=== PATIENT | male | born 1980 | race Caucasian/White ===

== ENCOUNTER → 2024-07-03 06:37 | Outpatient (REF) | payer OTHER, SELFPAY | LOC: RAD 06:37 | PROVIDERS: ATTENDING PHYSICIAN Nurse Practitioner | DX: E05.90 Thyrotoxicosis, unspecified without thyrotoxic crisis or storm (principal) | CPT/HCPCS: 76536 ==

== ENCOUNTER 2025-02-25 10:52 | Inpatient (IN) | payer OTHER, SELFPAY ==
[2025-02-25] VITALS (22 sets, daily range): BP systolic 99–137; BP diastolic 59–81; BMI 25.8
[2025-02-25] MEDS: ANECTINE 150 MG IV (09:07)
[2025-02-25] MEDS: AMIDATE 20 MG IV (09:07)
[2025-02-25] MEDS: SUBLIMAZE 100 MCG IV (09:12)
--- NOTE | 2025-02-25 09:13 | ED.GENMED ---
History of Present Illness
General
Chief Complaint: Overdose Intentional
Source: ambulance crew
Exam Limitations: altered mental status
Time Seen by Provider: 02/25/25 09:03
Nursing documentation reviewed up to this point in time: agreed with
History of Present Illness
History of Present Illness:
45-year-old male presumed overdose did not show up to work found in his bed somnolent please give 8 mg of Narcan with minimal relief empty bottle of Lexapro and clonidine, and an unknown third bottle
No trauma per EMS, minimally responsive with IV access, here pupils are 2-3 OU, somnolent not protecting his airway
10:15 AM discussed with father at bedside he found him face down and passed out this morning called 911 CPR started does not sound like he was pulseless, unsure if he was vomiting, has a history of mental illness followed at [facility]
alcohol occasionally
Past History
Past History
ED Past Medical History: None and Psychiatric (Anxiety, depression)
Social History
Tobacco: Smoker
Alcohol: Daily
Drug: Former user
Family History
Family History: Negative Diabetes, Hypertension or CAD
Phy Exam
Physical Exam
Physical Exam:
Physical Exam
General: Somnolent 45 male occasionally swinging his arm sitting up
Neck: No tongue bite pupils 2-3 oh
Heart: s1/s2 regular rate and rhythm, no murmur. equal radial pulses.
Lungs: no acute respiratory distress. clear bilaterally
Abdomen: Nontender
Neuro: Nonverbal somnolent
Skin: no rash
Psychiatric: Unable to assess
Extremities: No cyanosis
Course
Orders/Labs/Results
Orders:
Orders
02/25/25
Electrocardiogram (*1) Stat
Other Reason for Exam: OVERDOSE
02/25/25 09:01
Etomidate [Amidate 20 mg] 20 mg .ROUTE .STK-MED ONE
Succinylcholine Chloride [Anectine] 200 mg .ROUTE .STK-MED ONE
02/25/25 09:03
Propofol 1,000,000 Mcg/100 ml [Diprivan] 1,000,000 mcg in 100 ml .ROUTE .STK-MED
02/25/25 09:09
Fentanyl Citrate/Pf [Sublimaze] 100 mcg .ROUTE .STK-MED ONE
02/25/25 09:11
CT Head W/o Iv Contrast Urgent
Comment:
Reason For Exam: coma
Bedside Glucose- Treatment ONCE
Cardiac Monitoring- Treatment ONCE
IV Insert/Care/Rem.- Treatment PRN
Ventilator Initial Settings [RESP] Urgent
02/25/25 09:12
Electrocardiogram (*1) Stat
Reason for Study: Other
Other Reason for Exam: overdose
EKG- Treatment ONCE
Etomidate [Amidate 20 mg] 20 mg IV NOW STA
Fentanyl Citrate/Pf [Sublimaze] 100 mcg IV NOW STA
Succinylcholine Chloride [Anectine] 150 mg IV NOW STA
CR Chest Portable - 1 View Urgent
Comment:
Reason For Exam: vent
Reason Study Needs to be Portable: Patient Unstable
02/25/25 09:15
Propofol 1,000,000 Mcg/100 ml [Diprivan] 1,000,000 mcg in 100 ml IV PER PROTOCOL
Indication:: Deep Sedation
Begin Infusion:: Now
Goal:: RASS -3 to -5 or BIS < 60 or ventilator synchrony
Maximum dose in mcg/kg/min:: 50
Initial Dose in mcg/kg/min:: 20
Titration Instructions:: Titrate by 5-10 mcg/kg/min every 5 minutes until RASS -3 to -5 or
Titration Instructions:: BIS < 60 or ventilator synchrony is met.
Titration Instructions:: Administer analgesia bolus dose(s) & titrate analgesia prior to
Titration Instructions:: adjusting sedation.
Taper Instructions:: If RASS is at or below goal for 4 consecutive hours decrease infusion by
Taper Instructions:: 5-10 mcg/kg/min every 2 hours. Do not wean infusion to off if patient is
Taper Instructions:: receiving a continuous NMBA or has received bolus NMBA with the past 3 hrs
Over-sedation Instructions:: If BIS < 40 and synchronous with ventilator decrease infusion by
Over-sedation Instructions:: 5-10 mcg/kg/min every 2 hour until BIS = 40-60.
Notify provider:: immediately if patient exhibits signs/symptoms of propofol-related
Notify provider:: infusion syndrome.
Additional Instructions:: Patient MUST be mechanically ventilated and MUST receive analgesia.
02/25/25 09:16
Urinalysis Reflex To Culture Urgent
Date Specimen was Collected: 02/25/25
Time Specimen was Collected: 09:15
Urine Drug Abuse Screen Urgent
Date Specimen was Collected: 02/25/25
Time Specimen was Collected: 09:15
Urine Microscopic Reflex Cult Urgent
02/25/25 09:17
ABG [Arterial Blood Gas] Urgent
%Oxygen/Room Air: 100
Acetaminophen Urgent
Alcohol Urgent
Complete Blood Count/With Diff Urgent
Comprehensive Metabolic Panel Urgent
Magnesium Urgent
Comment: ADD ON
PTT Urgent
Prothrombin Time Urgent
Salicylate Urgent
Triglycerides Routine
Comment: baseline levels with propofol infusion
02/25/25 09:32
Straight cath- Treatment ONCE
0.9% Sodium Chloride 1000 ml [Nss] 1,000 ml IV BOLUS
02/25/25 10:00
FentaNYL 1,000 MCG/100 ML [Sublimaze] 1,000 mcg in 100 ml IV PER PROTOCOL
Fentanyl Citrate/Pf [Sublimaze] 50 mcg IV [id number] PRN
Propofol 1,000,000 Mcg/100 ml [Diprivan] 1,000,000 mcg in 100 ml IV PER PROTOCOL
02/25/25 10:13
Add On- LAB Routine
Tests Added?: magnesium
02/25/25 10:28
Crisis Consult Routine
Reason for Consult: od family 302
02/25/25 10:32
Admit/Transfer Patient As Directed
Co-Sign Provider:
Level of Care: Inpatient admission
Assign to:: ICU
Physician / Group: Kemar
Diagnosis: Drug overdose
Reason for Hospitalization: ICU care
Expected length of stay greater than two midnights?: Yes
ELOS- Estimated Length of Stay in days: 3
I certify the patient meets the requirements for IP care: Yes
02/25/25 10:33
PRN Pain Medication Management As Directed
May give lesser potent ordered pain med per pt: Yes
preference::
Protocol:: Medication orders for pain may be administered in a
manner that supports deferring to patient preference
when the pt is:
- Requesting an ordered lesser potent pain medication.
Least to most potent pain medications are defined
as: acetaminophen < NSAID < tramadol < opioids
(morphine, oxycodone, hydromorphone).
- Requesting a lesser dose of the same medication IF
ORDERED.
- Requesting a less intrusive route of administration
if both routes are prescribed by the provider (PO <
IV).
02/25/25 10:34
Code Status As Directed
Resuscitation Status: Full Code
02/25/25 10:55
0.9% Sodium Chloride [Nss (Preservative Free)] See Protocol IV PRN PRN
FOLic ACID [Folvite] 1 mg 0.9% Sodium Chloride 50 ml [Nss] 50 ml IV DAILYPRN
Lorazepam [Ativan] 1 mg IV Q1HPRN PRN
Lorazepam [Ativan] 1 mg PO Q2HPRN PRN
Lorazepam [Ativan] 2 mg IV Q1HPRN PRN
02/25/25 10:55
Case Management Consult Once
Case Management Consult: Other
Comment: Substance abuse counseling
DIETARY IP CONSULT Routine
Reason for Consult: Nutrition support, possible refeeding guidelines
Recruiting Team Lead Consult Routine
Consulting Provider: Suman Quiros
Was physician already notified: Yes
PSYCHIATRY CONSULT Routine
Consulting Provider: Norman Garcia
Was physician already notified: Yes
Activity As Directed
Activity Level: Bedrest
MSAS SCORE As Directed
MSAS Score 0-4: Repeat MSAS every 2 hours until 0-4 for three consecutive assessments, then every 4 hours x 48
hours.
MSAS Score 5-7: For MILD withdrawl symptoms. Repeat MSAS and RASS every 2 hours
MSAS Score 8-11: For MODERATE withdrawal symptoms. Repeat MSAS and RASS every 1 hour. Consider ICU or IMU
level of care.
MSAS Score > 11: For SEVERE withdrawal symptoms. Repeat MSAS and RASS every 1 hour. Notify provider, consider
ICU level of care.
MSAS Additional Instructions: If no improvement or no decrease in score from severe to moderate within 12
hours, consult psychiatry
MSAS Notify Provider: Notify provider if patient requires more than 10 mg of Lorazepam in eight hour period.
DX Deep Vein Thrombosis Video Routine
02/25/25 11:00
Lactated Ringers [Lr] 1,000 ml IV 100 mls/hr
Thiamine HCl [Vitamin B1] 100 mg PO BID
02/25/25 18:00
Enoxaparin Sodium [Lovenox] 40 mg SC QPM
02/25/25 20:00
Thiamine Injection 200 mg IV Q12
02/26/25 06:00
Basic Metabolic Panel IN AM
Complete Blood Count/With Diff IN AM
02/26/25 08:00
FOLic ACID [Folvite] 1 mg PO DAILY
02/28/25 06:00
Triglycerides Q3D
Comment: every 72 hours while patient is on propofol
03/03/25 06:00
Triglycerides Q3D
Comment: every 72 hours while patient is on propofol
03/06/25 06:00
Triglycerides Q3D
Comment: every 72 hours while patient is on propofol
Abnormal Lab Results
02/25/25 02/25/25
09:16 09:17
WBC 16.6 H 10^3/uL
(4.8-10.8)
RBC 4.11 L 10^6/uL
(4.70-6.10)
MCV 98.5 H fL
(80.0-94.0)
MCH 34.1 H pg
(27.0-31.0)
RDW 11.3 L %
(11.5-14.5)
Abs Immat Gran (auto) 0.1 H 10^3/uL
(0-0.05)
Absolute Neuts (auto) 14.9 H 10^3/uL
(1.4-6.5)
Absolute Lymphs (auto) 0.9 L 10^3/uL
(1.2-3.4)
Absolute Monos (auto) 0.7 H 10^3/uL
(0.1-0.6)
Immature Gran % 0.7 H %
(0-0.5)
Neutrophils % 89.7 H %
(42.2-75.2)
Lymphocytes % 5.2 L %
(20.5-51.1)
APTT 23.3 L Sec
(23.4-35.0)
pH 7.29 L
(7.35-7.45)
pO2 142 H mmHg
(83-108)
HCO3 18.8 L mmol/L
(21-28)
ABG O2 Sat (Measured) 99.1 H %
(94-98)
Carbon Dioxide 20 L mmol/L
(22-30)
Glucose 138 H mg/dl
(70-99)
Triglycerides 309 H mg/dl
(10-149)
Ur Occult Blood Reflex 1+ A
(Negative)
Urine Bacteria (Reflex) Few A
(Negative)
Urine Glucose 3+ A
(Negative)
Urine Albumin (Reflex) 1+ A
(Neg - Trace)
Salicylates < 1.0 L mg/dl
(2.0-20.0)
Acetaminophen < 10 L ug/ml
(10-30)
U Marijuana (THC) Screen Positive H
(Negative)
02/25/25 09:17
02/25/25 09:17
Vital Signs
Initial and Last Documented VS:
Initial Vital Signs
Pulse Resp BP
100 18 137/62
02/25/25 09:14 02/25/25 09:14 02/25/25 09:14
Last Documented Vital Signs
Temp Pulse Resp BP Pulse Ox
97.0 F 76 15 108/67 98
02/25/25 10:02 02/25/25 10:45 02/25/25 10:45 02/25/25 10:45 02/25/25 11:09
Procedures
Intubations
Procedure completed by: zena
Method of Intubation: glidescope
Tube size (cm): 8.0
Placement confirmed by: auscutation
Breath sounds after intubation: equal
Intubation complications: no complications
MDM/Problems Addressed
Differential Diagnosis Includes:
Polypharmacy overdose, sedative-hypnotic SSRI hypertensive aspiration intracerebral hemorrhage
MDM/Problems Addressed:
Mental status change
Chronic conditions affecting care: Psychiatric illness
Acute Exacerbation and/or Progression of Chronic Illness: Psychiatric illness
*Radiology
Radiology exam reviewed: radiology read reviewed
*Pulse Oximetry
SaO2: 98
Oxygen Mode of Delivery: Room air
Patient hypoxic: no
*EKG
Interpreted by ED Provider?: Yes
Interpretation: abnormal
Comparison EKG: no comparison EKG present
Heart Rate: 78
Rate: normal
Rhythm: sinus
Ischemia: non-specific ST changes
*Glass Sagger Interpretation
Rate: normal
Interpretation: normal
Heart Rate: 78
Rhythm: sinus
*Critical Care Note
Total Time (30-74mins, 75-104mins- exclusive of procedures): 30
ED Attending Note
-
Portions of this chart may have been created with voice recognition software.� Occasional wrong word or��sound alike� substitutions may have occurred due to the inherent limitations of voice recognition software.
Discharge Plan
Departure
Patient Disposition: Admit
Date of Disposition: 02/25/25
Time of Disposition: 10:31
Admit to: ICU
Presentation/result/management discussed w/ accepting MD/DO: Hospitalist
Patient with high blood pressure during this ER visit?: No
Condition: Serious
Discharge Problem:
Overdose by ingestion
Interventions
Interventions:
*Risk Screen - Suicide Last Done: 02/25/25 11:24
*ED COVID-19 Vaccine History Last Done: 02/25/25 11:23
*Nursing Disposition Last Done: 02/25/25 11:09
ED- Cardiac Assessment Last Done: 02/25/25 09:56
ED- Neurological Assessment Last Done: 02/25/25 09:50
ED-Psychological Assessment Last Done: 02/25/25 09:57
ED- Pulmonary Assessment Last Done: 02/25/25 09:46
Discharge Date and Time
Discharge Date/Time: 02/25/25 11:10
[2025-02-25] MEDS: DIPRIVAN 100 IV (09:18)
--- NOTE | 2025-02-25 09:20 | EDRN ---
Patient arrived via EMS at 0900 as an intentional overdose. Patient was found lying in his bed by his boss after not showing up for work. Patient was brought to the ground and CPR started.
Police arrived and gave a total of 8mg Narcan with minimal response.
EMS gained IV access and gave Narcan with no response. EMS found 2 empty bottles bedside, clonidine and Lexapro. Patient on non rebreather with spo2 at 98%. BS 147.
Patient making some jarring movements but unresponsive to verbal or painful stimuli.
Dr. Davis bedside upon arrival.
40 etomidate and 150 succ given at 0907
Dr. Davis intubated patient using 8.0 tube measuring 24 at the lip.
Vent settings 650/16/40%/5
Straight cath for urine.
Post intubated sedation started with propofol and fentanyl.
18G left wrist
18G left AC
[2025-02-25 09:27] LABS: Hematocrit 40.5 % (39.0-52.0); Hemoglobin 14.0 g/dL (13.0-18.0); Mean Corp Hgb Conc. 34.6 g/dL (33.0-37.0); Mean Corpuscular Volume 98.5 fL (80.0-94.0); Nucleated Red Blood Cells % 0 % (-); Platelet Count 176 10^3/uL (130-400); Red Cell Dist. Width 11.3 % (11.5-14.5)
[2025-02-25 09:38] LABS: B.E. -7.3 mmol/L; HCO3 18.8 mmol/L (21-28); O2 Saturation % 99.1 % (94-98); PCO2 39 mmHg (35-48); PO2 142 mmHg (83-108)
[2025-02-25] MEDS: SUBLIMAZE 100 IV (09:38)
[2025-02-25 09:40] LABS: INR 0.93; PT 12.8 Sec (11.4-14.6)
[2025-02-25] MEDS: NSS 1000 IV (09:41)
[2025-02-25 09:56] LABS: APTT 23.3 Sec (23.4-35.0)
[2025-02-25 09:59] LABS: Urine Character Clear (Clear)
[2025-02-25 10:16] LABS: ALT (SGPT) 28 U/L (0-50); AST (SGOT) 46 U/L (17-59); Acetaminophen < 10 ug/ml (10-30); Albumin 4.2 g/dl (3.5-5.0); Alkaline Phosphatase 64 U/L (38-126); Blood Urea Nitrogen 9 mg/dl (9-20); Calcium 8.9 mg/dl (8.4-10.2); Carbon Dioxide 20 mmol/L (22-30); Chloride 105 mmol/L (98-107); Glucose 138 mg/dl (70-99); Potassium 3.5 mmol/L (3.5-5.1); Salicylate < 1.0 mg/dl (2.0-20.0); Sodium 135 mmol/L (135-145); Total Protein 6.6 g/dl (6.3-8.2); Triglycerides 309 mg/dl (10-149); eGFR > 60.00
--- NOTE | 2025-02-25 10:24 | PHANOTE ---
Med History note:
clonidine 0.1 mg # 30 filled 02/23/25
meloxicam 15 mg #30 filled 02/09/25
escitalopram 20mg #30 filled 02/08/25
chlorpromazine 100 mg #30 filled 02/01/25
--- NOTE | 2025-02-25 10:38 | HPS.HSE ---
Family Physician
-
Family Physician: INTERVIEWE UNKNOWN - PT NOT
Chief Complaint
-
Unresponsive
History of Present Illness
45-year-old male with history of depression found unresponsive by his father this morning. Was facedown in bed. Last seen to be normal yesterday. Does have a history of depression on antidepressants.
Seen in [facility] in the past. Family denies history of suicidal thoughts or attempts in the past.
Paramedics found empty bottles at his bedside including clonidine, Lexapro, and a third unidentified bottle.
Family denies history of drug abuse. Denies history of heavy alcohol use. He does drink beer.
All history obtained by speaking with parents. Patient is currently sedated and intubated in the emergency room.
Medical History
Past Medical History
Past Medical History: Reports Other
Additional Past Medical History:
Major depression
Anxiety disorder
Essential hypertension
Thyroid nodule
History of Lyme disease
Dyslipidemia
Past Surgical History: Reports None
Social History
Tobacco: Smoker
Alcohol: Occasional
Drug: None
Personal: Single
Living: Alone
Family History
Family History: Not pertinent
Allergies / Home Medications
Allergies reflects when Allergies were last updated in [employer] ([email or web address]
Home Medications with original date entered in [employer] ([email or web address])
Allergy/Medication List:
Allergies
Allergy/AdvReac Type Severity Reaction Status Date / Time
No Known Allergies Allergy Verified 02/25/25 09:02
Home Medications
B12 1 dose INJ ONCE 09/09/09
Bcomplex 1 tab PO DAILY 09/09/09
multivitamin with folic acid 400 mcg tablet (Tab-A-Stanislaw) 1 tab PO DAILY 09/09/09
chlorpromazine 100 mg tablet 100 mg PO HS 02/25/25
clonidine HCl 0.1 mg tablet 0.1 mg PO HS 02/25/25
escitalopram oxalate 20 mg tablet 20 mg PO HS 02/25/25
meloxicam 15 mg tablet 15 mg PO DAILY 02/25/25
Review of Systems
-
Unable to obtain full review of systems at this time due to: Patient Intubation
History Source: Family
Physical Exam
Vital Signs
Vital Signs
Temp Pulse Resp BP Pulse Ox
97.0 F 79 16 105/61 98
02/25/25 10:02 02/25/25 09:45 02/25/25 09:45 02/25/25 09:40 02/25/25 09:22
Physical Exam
General: Well Developed, Well Nourished, No Apparent Distress and Intubated
HEENT: NormoCephalic, Anicteric and Moist mucous membranes
Respiratory: Clear
Cardiac: S1/S2 and Regular Rhythm
GI: Soft, Non Tender and Non Distended
Genito-urinary: Deferred by me
Musculoskeletal: No Clubbing, No Cyanosis and No Edema
Skin: Warm and Dry
Neuro: Sedated
Hematologic/Lymphatic: No Lymphadenopathy
Psych: Calm
Laboratory Results
-
02/25/25 09:17
02/25/25 09:17
Laboratory Results
PT 12.8 Sec (11.4-14.6) 02/25/25 09:17
INR 0.93 02/25/25 09:17
APTT 23.3 Sec (23.4-35.0) L 02/25/25 09:17
pH 7.29 (7.35-7.45) L 02/25/25 09:17
pCO2 39 mmHg (35-48) 02/25/25 09:17
pO2 142 mmHg (83-108) H 02/25/25 09:17
HCO3 18.8 mmol/L (21-28) L 02/25/25 09:17
Total Bilirubin 0.4 mg/dl (0.2-1.3) 02/25/25 09:17
AST 46 U/L (17-59) 02/25/25 09:17
ALT 28 U/L (0-50) 02/25/25 09:17
Alkaline Phosphatase 64 U/L (38-126) 02/25/25 09:17
Impression/Plan
-
Acute encephalopathy -due to drug overdose, alcohol intoxication. Intubated in the emergency room for airway protection.
Admit to ICU. Consult pediatric cns. Continue ventilator management.
UDS positive for marijuana. Alcohol level 169.
Leukocytosis noted, afebrile. Possible leukemoid reaction. Monitor for now.
Alcohol use disorder -initiate alcohol withdrawal protocol.
Normal anion gap metabolic acidosis -possibly due to drug overdose. Bicarb 20. Will monitor for now.
Major depression -no known history of suicide per family. Consult psychiatry when more awake.
Full code
Parents updated at the bedside.
[2025-02-25 10:42] LABS: Urine Red Blood Cell 0-2 /HPF (0-2); Urine White Cell 0-2 /HPF (0-5)
[2025-02-25 10:48] LABS: Magnesium 2.0 mg/dl (1.6-2.3)
[2025-02-25 11:09] LABS: Glucose - Point of Care 100 mg/dl (70-99)
--- NOTE | 2025-02-25 11:09 | EDRN ---
Patient was transported to CT scan then directly to ICU, Report to Wilfredo Terrell RN
--- NOTE | 2025-02-25 11:38 | PTCARENOTE ---
pt received form ED. on vent sedated on diprivan and fent gtt. pt moves legs with stimuli. not responsive to voice. no upper body movement noted. pupils 2 and fixed. pos cough with suction. corneal reflex present. titrating sedation for rass
of 0. bladder scan for 450 md made aware. wu cath placed.
[2025-02-25] MEDS: LR 1000 IV ×2 (11:41→19:12)
[2025-02-25] MEDS: THIAMINE INJECTION 200 MG IV ×2 (12:22→21:25)
--- NOTE | 2025-02-25 12:23 | PTCARENOTE ---
diprivan being titrated down as ordered. pt shaking head with oral care and at one point sat up in bed. still not following any commands.
--- NOTE | 2025-02-25 12:26 | CON.INTV ---
Consultation
Consultation Request
Date/Time Consultation Requested: 02/25/2025
Date/Time Consultation Performed: 02/25/2025
Requesting Provider: Dr. Reinoso
Performing Provider: Dr. Suman Vincent
Reason for Consultation: Multidrug overdose with hypercapnic respiratory failure
Medical History
-
History of Present Illness:
45-year-old man with history of depression who was found unresponsive by his father the morning of admission. Patient was last time seen normal the day prior. Patient is on antidepressants.
There is no prior history of suicidal thoughts or attempts in the past.
Multiple bilateral were found at the bedside by EMS including clonidine, Lexapro and others.
Alcohol level was positive.
Patient was intubated. On mechanical ventilation.
Unknown time that the patient was down.
CT of the head showed no acute abnormalities
Patient unable to provide history.
Past Medical History
Past Medical History: Other (See assessment and plan)
Social History
Tobacco: Non-smoker
Alcohol: None
Drug: None
Living: With Family
Family History
Family History: Reviewed & Not Pertinent
Allergies / Home Medications
Allergies
Allergy/AdvReac Type Severity Reaction Status Date / Time
No Known Allergies Allergy Verified 02/25/25 09:02
Home Medications
�Medication �Instructions �Recorded �Confirmed �Last Taken �Type
B12 1 dose INJ ONCE 09/09/09 09/09/09 09/08/09 History
Bcomplex 1 tab PO DAILY 09/09/09 09/09/09 09/08/09 History
multivitamin with folic acid 400 1 tab PO DAILY 09/09/09 09/09/09 09/08/09 History
mcg tablet (Tab-A-Stanislaw)
chlorpromazine 100 mg tablet 100 mg PO HS 02/25/25 02/25/25 Unknown History
clonidine HCl 0.1 mg tablet 0.1 mg PO HS 02/25/25 02/25/25 Unknown History
escitalopram oxalate 20 mg tablet 20 mg PO HS 02/25/25 02/25/25 Unknown History
meloxicam 15 mg tablet 15 mg PO DAILY 02/25/25 02/25/25 Unknown History
Review of Systems
-
Unable to Obtain full review of systems at this time due to: Patient Intubation
Vitals / Labs / Diagnostic Testing
Vital Signs
Temp Pulse Resp BP Pulse Ox
96.3 F L 76 15 108/67 98
02/25/25 11:35 02/25/25 10:45 02/25/25 10:45 02/25/25 10:45 02/25/25 12:00
Lab Data
02/25/25 09:17
02/25/25 09:17
Laboratory Results
02/25/25
09:17
PT 12.8
INR 0.93
APTT 23.3 L
pH 7.29 L
pCO2 39
pO2 142 H
HCO3 18.8 L
O2 Delivery Level
Diagnostic Testing:
Physical Exam
-
HEENT: Normocephalic and Other (ET tube in place without secretion)
Cardiovascular: S1/S2
Respiratory: Non-Labored Respirations
GI: Soft and Non Distended
Neurology: Other (On mechanical ventilation. Has a cough effort. Was able to squeeze my hand on demand. Did not open eyes. Able to move lower extremities.) and Other (Pupils are equal. Sluggish)
Skin: Warm
General: Comfortable
Assessment
-
45-year-old male with history of depression, brought in to the emergency room via EMS after he was found down by father. Intubated on mechanical ventilation. Unresponsive.
Multidrug overdose-possible suicidal attempt/found unresponsive.
CT head: Negative for acute abnormality
Respiratory failure requiring intubation for airway protection-likely hypercapnic
Chest x-ray: Clear lungs
Positive alcohol level
Leukocytosis/hypothermia
Assessment and plan:
Critically ill: Unresponsive due to multidrug overdose-possible suicidal attempt.
-
Mechanical ventilation settings reviewed-pulmonary mechanics acceptable
Chest x-ray reviewed without infiltrates
ET tube without secretions
Clear lung exam
Patient has a cough effort to suction.
No evidence for infection or aspiration at this point
Continue supportive care
Minimize sedation-discontinue fentanyl and propofol if possible.
-
Continue with neurochecks.
Patient was able to squeeze hands to command.
With suctioning he sat up coughing.
Above neurological improving is encouraging.
-
Currently not hypotensive
Tate with clear urine
-
Continue IV fluids
Follow leukocytosis and fever curve
Currently hypothermic but hemodynamically stable.
Reportedly took some clonidine.
UDS essentially negative other than cannabis.
Alcohol level was positive-family denies any heavy daily drinking
MSAS protocol started
-
DVT prophylaxis with Lovenox
N.p.o. for now
IV fluid with LR at 100 cc an hour.
Head of the bed elevation
-
Critical care statement: A total of 38 minutes of critical care time was provided for this patient today. This includes management of unstable vital signs, evaluation of the patient at bedside, reviewing the patient's pertinent medical records
including ventilator settings, arterial blood gases, radiographs, microbiology, laboratory evaluations and discussion with primary team, critical care nursing, and respiratory therapy.
--- NOTE | 2025-02-25 14:20 | PTCARENOTE ---
pt moving all exts now. sitting up in bed at times when turned. pt attempting to open eyes on command
--- NOTE | 2025-02-25 16:52 | W.PN.UPDATE ---
Update Note
Progress Note Update
I was called in emergently to see patient.
Patient was alert, awake, agitated.
Became really tachycardic, agitated wanted the tube removed.
Hemodynamically stable
Lung exam was clear
Sedation was discontinued
I personally extubated patient
No stridor on exam
Patient was able to make eye contact, following simple commands.
Keep n.p.o. for now. In the next 1 to 2 hours if patient is awake and appropriate perform bedside swallowing evaluation.
Can advance diet
One-to-one observation-potential suicide attempt.
Psychiatry evaluation in the morning
Hold sedatives for now
-
--- NOTE | 2025-02-25 16:58 | PTCARENOTE ---
pt woke up thrashing in bed. noding head to questions. saying yes he wants the tube out. following commands. hr 140's. dr Vincent at bedside. ordered to extubate pt. sedation turned off. pt now on 2lnc. softly speaking. states no pain.
does not remember what happened. pct now sitting in room.
--- NOTE | 2025-02-25 17:14 | RESPNOTE ---
patient extubated by Dr. Vincent. patient awake alert and on room air. ventilator pulled.
[2025-02-25] MEDS: LOVENOX 40 MG SC (18:10)
--- NOTE | 2025-02-25 19:28 | PTCARENOTE ---
on assessment pt AAOx3, soft voice, denies pain and SOB at this time, SR on the monitor, 2L NC 98%, extubated at 1630, NPO, passed bedside swallow, wu in place, NS running at 100ml/hr.
[2025-02-26] VITALS (15 sets, daily range): BP systolic 107–146; BP diastolic 61–88; BMI 25.5
--- NOTE | 2025-02-26 00:08 | PTCARENOTE ---
no changes from prior assessment, pt denies pain and SOB, appears to be resting comfortably in bed
[2025-02-26 03:25] LABS: Hematocrit 37.2 % (39.0-52.0); Hemoglobin 12.7 g/dL (13.0-18.0); Mean Corp Hgb Conc. 34.1 g/dL (33.0-37.0); Mean Corpuscular Volume 98.9 fL (80.0-94.0); Nucleated Red Blood Cells % 0 % (-); Platelet Count 141 10^3/uL (130-400); Red Cell Dist. Width 11.8 % (11.5-14.5)
--- NOTE | 2025-02-26 03:43 | PTCARENOTE ---
denies pain and SOB, SR/SB while asleep, repositions self in bed
[2025-02-26 03:48] LABS: Blood Urea Nitrogen 9 mg/dl (9-20); Calcium 8.7 mg/dl (8.4-10.2); Carbon Dioxide 27 mmol/L (22-30); Chloride 112 mmol/L (98-107); Estimated Creatinine Clearance 115 ml/min; Glucose 84 mg/dl (70-99); Potassium 3.5 mmol/L (3.5-5.1); Sodium 140 mmol/L (135-145); eGFR > 60.00
[2025-02-26] MEDS: KCL ELIXIR 40 MEQ PO (05:51)
--- NOTE | 2025-02-26 08:15 | PTCARENOTE ---
on assessment pt AAOx3, soft voice, denies pain and SOB at this time, SR on the monitor. diet advanced. wu in place, Flat affect. Denying SA to hospitalist.
--- NOTE | 2025-02-26 08:15 | W.PN.HOSP.TC ---
Addendum entered and electronically signed by Jorge Reinoso DO 02/26/25 11:58:
Acute drug induced encephalopathy.
Original Note:
Today's Communication/Plan
-
Resume diet
Psychiatry consult
Replete potassium
Assessment / Plan
Assessment / Plan
Gen-AAOx3, NAD
HEENT-NC, AT, anicteric, clear oral mm
Neck-supple
CV-reg, no M, +S1/S2
Lungs-clear B/L
Abd-soft, NT, ND
Ext-no edema
Musculoskeletal-no cyanosis, clubbing
Skin-warm and dry
Neuro-grossly non-focal
Psych-calm, cooperative
Intentional drug overdose -presentation with unresponsiveness, acute encephalopathy. Intubated for airway protection on arrival, patient self extubated last night.
Hemodynamically stable, oxygenation normal on room air.
Resume diet today.
Major depression -patient admits to taking a handful of his home medications to sleep for a few days. He states he took 15 tablets of Thorazine, 15 tablets of Lexapro, 8 tablets of clonidine, 8 tablets of Benadryl to help him sleep. He also drank
a whole bottle of whiskey at the time. He denies history of suicidal ideation or attempts. States he has had major depression for most of his life.
Currently on one-to-one sitter. Awaiting psychiatry input.
Alcohol use disorder -tremors noted on exam today. Continue alcohol withdrawal protocol. He was a daily drinker up until a week ago when he decided to try to stop. He drank a bottle of whiskey on 02/24 prior to admission.
Marijuana use disorder -smokes marijuana daily.
Full code
Can transfer out of ICU today if stable.
Anticipated Discharge: > 48 hours
Subjective/Interval History
-
Date of Service: February 26, 2025
Patient seen and examined. No complaints.
Objective Data
-
Labs:
Laboratory Results
02/26/25
03:08
WBC 8.8
Hgb 12.7 L
Hct 37.2 L
Plt Count 141
Sodium 140
Potassium 3.5
Chloride 112 H
Carbon Dioxide 27
BUN 9
Creatinine 0.9
Glucose 84
Calcium 8.7
Vital Signs:
Vital Signs
Temp Pulse Resp BP Pulse Ox
97.5 F 72 13 142/81 94
02/26/25 07:40 02/26/25 06:00 02/26/25 06:00 02/26/25 06:00 02/26/25 06:00
I&O
02/25/25 02/26/25 02/27/25
06:59 06:59 06:59
Intake Total 2255 / 2255
Output Total 3100 / 3100
Balance -845 / -845
Review of Systems
-
History Source: Patient
All other systems: Reviewed and negative
[2025-02-26] MEDS: FOLVITE 1 MG PO (08:18)
[2025-02-26] MEDS: THIAMINE INJECTION 200 MG IV ×2 (08:18→19:41)
--- NOTE | 2025-02-26 08:52 | W.PN.PUL3 ---
Today's Communication / Plan
-
Continue one-to-one observation
Increase activity as able
Advance diet
Transfer to [facility]
Monitor daily electrolyte
Continue to monitor for alcohol withdrawal
Wait for psychiatry output
Assessment
-
45-year-old male with history of depression, brought in to the emergency room via EMS after he was found down by father. Intubated on mechanical ventilation. Unresponsive.
Multidrug overdose-possible suicidal attempt/found unresponsive.
CT head: Negative for acute abnormality
Respiratory failure requiring intubation for airway protection-likely hypercapnic
Chest x-ray: Clear lungs
Positive alcohol level
Leukocytosis/hypothermia
Assessment and plan:
-
Extubated 02/25/2025 in the afternoon
This morning he is appropriate
Not requiring oxygen supplementation
Clear lung exam
No evidence for aspiration
-
Intentional drug overdose: Reports taking multiple medication and a bottle of whiskey to try to sleep for few days.
took 15 tablets of Thorazine, 15 tablets of Lexapro, 8 tablets of clonidine, 8 tablets of Benadryl to help him sleep
Continue one-to-one observation
Psychiatry evaluation
Patient has history of depression most of his life, drinks alcohol daily up until recently.
-
Hemodynamically stable
Tate with clear urine-May discontinue
-
Continue alcohol withdrawal protocol.
Eventually restart outpatient regimen for depression. Wait for psychiatry input.
-
Advance diet
Discontinue IV fluids
-
DVT prophylaxis with Lovenox
-
Increase activity as able
-
Transfer to [facility]
Critical care team will sign off
Subjective Data
-
Date of Service:
Date of Service: February 26, 2025
Chief Complaint: Pulmonary Follow Up (Intentional drug overdose)
Subjective:
Tolerated extubation
This morning denies any shortness of breath
Denies headache or blurry vision
Admitted to taking several pills and alcohol therapy sleep for several days.
Review of Systems
Cardiopulmonary: Dyspnea and Dyspnea on Exertion (n)
GI: Abdominal Pain (n)
Neuro: Headache (n)
Objective Data
Data Reviewed
Vital Signs / I&O / Oxygen:
Vital Signs
Temp Pulse Resp BP Pulse Ox
97.5 F 82 21 132/79 95
02/26/25 07:40 02/26/25 08:30 02/26/25 08:30 02/26/25 08:00 02/26/25 08:30
Intake and Output
02/25/25 02/26/25 02/27/25
06:59 06:59 06:59
Intake Total 2255 / 2255 0 / 0
Output Total 3100 / 3100
Balance -845 / -845 0 / 0
SaO2 [A/C] 96
SaO2 95
Nasal Cannula flow liters per 2
minute
Physical Exam
General: Comfortable
HEENT: Normocephalic
Cardiovascular: S1-S2
Respiratory: Non-Labored Respirations
GI: Soft and Non Distended
Neurology: Awake, Oriented and No Motor Deficits
Skin: Warm
Labs/Micro/Reports
Lab Data
02/26/25 03:08
02/26/25 03:08
Laboratory Results
02/25/25
09:17
PT 12.8
INR 0.93
APTT 23.3 L
pH 7.29 L
pCO2 39
pO2 142 H
HCO3 18.8 L
O2 Delivery Level
--- NOTE | 2025-02-26 10:26 | CM ---
Addendum entered by Jeremy Huerta 02/26/25 14:14:
[facility] came to visit patient. They need the psych consult to be completed before they can evaluate patient.
Addendum entered by Jeremy Huerta 02/26/25 11:28:
Patient lives alone.
Original Note:
Initial assessment completed with patient who lives in a 2 story home with B/B on and 1/2 bath on , 1 step to enter. [employer] patient was independent in ADL's and ambulation, drives. Does have a SC in the home. No in-home services. Has had one
psychiatric admission in 2020 because 'I was unable to sleep', diagnosis unknown. Has not been in a [facility] rehab. For the past 3 months he has been participating in [facility] which is a [facility] support through [facility]. No
service. No HC-POA. PCP is Dr. Radha Kaur and Pharmacy is [facility] on in [place]. Discharge POC: ERICH notified.
--- NOTE | 2025-02-26 11:34 | PN.CDI ---
CDI
- -
CDI:
Physician Documentation Request
Admit Date: 02/25/25 10:52
Dear Doctor Kemar,
Please review the following and provide your response in the progress notes.
Clinical Indicators:
Pt admitted with intentional Overdose to multiple medications
Progress note 02/26,'Intentional drug overdose -presentation with unresponsiveness, acute encephalopathy..Major depression -patient admits to taking a handful of his home medications to sleep for a few days. He states he took 15 tablets of
Thorazine, 15 tablets of Lexapro, 8 tablets of clonidine, 8 tablets of Benadryl to help him sleep. He also drank a whole bottle of whiskey at the time. ...'
Please specify the known or suspected type of the documented encephalopathy.
Toxic
Drug induced
Toxic metabolic
Other ( please specify)
Use of terms such as suspected, likely, concern for, or probable (associated with a specific diagnosis that is being evaluated, monitored, or treated as if it exists) are acceptable and can be coded in the inpatient setting, when documented at the
time of discharge.
Thank you,
Janell Villatoro RN
CDI Specialist
Varnell text
Please use your independent medical judgment in providing your response.
--- NOTE | 2025-02-26 12:35 | PTCARENOTE ---
Father to bedside, updated on care plan. Father encouraged due to seeing pt smile, stating he 'almost never smiles.'
--- NOTE | 2025-02-26 14:47 | PTCARENOTE ---
Psychiatry to bedside.
--- NOTE | 2025-02-26 14:55 | PTCARENOTE ---
Psychiatrist discontinuing 1:1.
--- NOTE | 2025-02-26 14:58 | CON.MD ---
Consultation - Medical
-
patient seen chart reviewed. this consult was done today february 26 2025 the patient is a 45 year old male who says in an effort to get some sleep he took a number of pills including lexapro clonidine and thorazine. he emphatically denies that he was
trying to commit suicide. he says he has never considered suicide. he had talked to his pcp recently after seven consecutive days of no sleep. he has had a sleep study which was inconclusive . it was an at home study and he found it difficult to
sleep and kept taking off the monitors. he has seen a prescriber a [facility] and he has been dx as bipolar and unipolar depression. he has taken a number of meds none of which were consistently helpful. they would help for a very
short time then no effect. it sounds like he was always taking an antidep and a mood stabilizer ie an antipsychotic. the latest combination was thorazine and lexapro and clonidine for anxiety. appetite was okay. there is nothing to suggest
psychosis. his energy level is variable. in his younger years he was energetic despite not sleeping. not so much at this point in his life. he says his bedroom is dark and cool...there is very little noise. he drinks a red bull daily. no other
caffeine. he does consume medical mj daily in an effort to help his sleep which it does not really do. he does describe looking over the course of his life racing thoughts periods of increased energy and decreased or no need for sleep and
increased productivity though less in recent years. more commonly in the last few years he has been depressed. patient said surprisingly he slept pretty well last night.
past psych hx one hospitalization a few years ago at [facility]. said he talked to his psych at [facility] . at the time he was not sleeping and was depressed though not suicidal and they suggested hosp which was not very helpful. he did not find
[facility] helpful either and came to [facility] a few years ago where he sees ms holden vaughn. .he did not have a therapist but recently asked to be assigned one and is awaiting a call attended a [employer] program for help with life ( issues groups )
past medical hx hld htn hx lyme thyroid nodule tox screen mj cat brain no acute changes qtc 544 then repeat 498 (secondary to od??lexapro??)
substance abuse daily med mj denies other
fh thinks his dad may be bipolar
social resides w dad and works in his business remodeling homes. bro a few years back suddenly at work sister lives in [place] [facility]. 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
lately. denies sexual or other trauma hs grad some college at [employer] in [place]
mse alert xo3 cooperative pleasant speech and thought process nl no psychosis mood is subdued appears s/w depressed affect constricted no si aver intell insight judgment impaired
dx bipolar affective disorder depressed
plan will review [facility] chart. there is a chance patient is bipolar. typically bipolar patients do not respond dwell to antidepressants which can worsen insomnia sometimes. would consider a mood stabilizer such as latuda which is indicated for
bipolar depression. at this moment would not use any psychotropics to allow him to recover from od. would check b12 folate and vit d as well as tsh w reflex to t4 if not already done. will follow and continue to talk w him while he is here. will
also speak w his out pt prescriber ms holden. dc one to one. while no one can predict the future i do not feel patient is an imminent suicidal risk.
[2025-02-26] MEDS: LOVENOX 40 MG SC (17:08)
--- NOTE | 2025-02-26 17:15 | PTCARENOTE ---
Addendum entered by Saba Joel RN 02/26/25 18:07:
from wheelchair to bed
Original Note:
patient arrived to unit. VSS. OX4. patient tolerated ambulating from stretcher to bed. patient in NAD. call lopez in reach. safety maintained. will continue to monitor
--- NOTE | 2025-02-26 18:21 | PTCARENOTE ---
pt voiding post wu removal
[2025-02-26] MEDS: ATIVAN 1 MG PO (19:40)
[2025-02-27] MEDS: THIAMINE INJECTION 200 MG IV ×2 (07:59→20:01)
[2025-02-27] MEDS: FOLVITE 1 MG PO (07:59)
[2025-02-27 08:03] LABS: Vitamin D, 25-OH*** 34.5 ng/mL (30-80)
[2025-02-27 08:37] VITALS: BP 125/83
[2025-02-27 08:52] LABS: Folate > 20.0 ng/ml (2.76-20); Vitamin B12 597 pg/ml (239-931)
--- NOTE | 2025-02-27 11:23 | W.PN.UPDATE ---
Update Note
Progress Note Update
patient seen chart reviewed. case discussed with dr poe. dr garcia our new psychiatrist saw patient with me this am. we discussed a number of issues. patient lives a very lonely existence. 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
dad. rather he feels dad is very critical of him he works with dad and feels dad finds often fault with him. he also feels as though dad at this point is aligned and devoted to his excluding him. he believes dad will leave his business his two
homes and his money to his rather than to patient. he did have a gf he was with for some years but they are estranged. he texted her a few weeks ago and she took some time to text him back and he has not texted her since. he admits he is lonely
. he has made some efforts to reach out including engaging in a mennonite support group and he attends congregation sometimes but he is tenuously connected. we explored the ideas of php vs in pt. he does not want to go to in pt. i explored the option of
php and was not getting a direct answer. in the meantime patient became upset and i was notified by nursing that he was threatening to sign out ama. i had already talked to dr poe and dr garcia about the ? of whether patient should go to in
patient. there is doubt in everyone's mind about whether this was a suicide attempt and whether the patient will actually show up for php. given my interaction with him after being told he was wanting to sign out ama i am inclined to agree. after
discussion a decision made to file a 302 and patient made aware of it. given ativan one mg to help him to calm down. i will be the petitioner for the 302 [address] ramesh garcia the examiner. will instiute one to one for now given patient agitation.
[2025-02-27] MEDS: ATIVAN 1 MG PO ×2 (11:35→20:09)
--- NOTE | 2025-02-27 12:30 | W.PN.HOSP.TC ---
Today's Communication/Plan
-
302 process
Discharge planning
Assessment / Plan
Assessment / Plan
Gen-AAOx3, NAD
HEENT-NC, AT, anicteric, clear oral mm
Neck-supple
CV-reg, no M, +S1/S2
Lungs-clear B/L
Abd-soft, NT, ND
Ext-no edema
Musculoskeletal-no cyanosis, clubbing
Skin-warm and dry
Neuro-grossly non-focal
Psych-calm, cooperative
Intentional drug overdose -presentation with unresponsiveness, acute encephalopathy. Presumed suicide attempt. Intubated for airway protection on arrival, patient self extubated.
Hemodynamically stable, oxygenation normal on room air.
Major depression -patient admits to taking a handful of his home medications to sleep for a few days. He states he took 15 tablets of Thorazine, 15 tablets of Lexapro, 8 tablets of clonidine, 8 tablets of Benadryl to help him sleep. He also drank
a whole bottle of whiskey at the time. He denies history of suicidal ideation or attempts. States he has had major depression for most of his life.
Agree with psychiatry regarding 302. Agree with one-to-one sitter. Discussed with patient that he needs acute psychiatric hospitalization. He is not happy with this recommendation.
Alcohol use disorder -tremors improving. Continue alcohol withdrawal protocol. He was a daily drinker up until a week ago when he decided to try to stop. He drank a bottle of whiskey on 02/24 prior to admission.
Marijuana use disorder -smokes marijuana daily.
Full code
Dispo -medically stable for discharge to inpatient psychiatric hospital. Updated case management. Discussed with psychiatry service.
Anticipated Discharge: 24 - 48 hours
Subjective/Interval History
-
Date of Service: February 27, 2025
Patient seen and examined. No complaints.
Objective Data
-
Vital Signs:
Vital Signs
Temp Pulse Resp BP Pulse Ox
97.6 F 128 16 125/83 98
02/27/25 08:37 02/27/25 08:37 02/27/25 08:37 02/27/25 08:37 02/27/25 08:37
I&O
02/26/25 02/27/25 02/28/25
06:59 06:59 06:59
Intake Total 2255 / 2255 420 / 420
Output Total 3100 / 3100 750 / 750
Balance -845 / -845 -330 / -330
Review of Systems
-
History Source: Patient
All other systems: Reviewed and negative
--- NOTE | 2025-02-27 14:59 | CM ---
CM reviewed chart, patient for 302, paperwork completed by Dr. Zarate and Dr. Anderson. [facility]work and [facility] to [facility] [phone]. Will start bed search, [facility] preference [facility]- spoke with admissions, will fax
[phone]. Will continue to follow for all discharge planning needs.
Plan; 302 filed, clinicals faxed to [facility], will await acceptance
[2025-02-27 15:31] VITALS: BP 122/76
[2025-02-27] MEDS: LOVENOX 40 MG SC (17:17)
[2025-02-27 17:30] VITALS: BP 136/89
[2025-02-27 23:09] VITALS: BP 141/93
[2025-02-28] MEDS: ATIVAN 1 MG PO ×3 (01:57→15:12)
[2025-02-28] MEDS: VITAMIN B1 100 MG PO (08:06)
[2025-02-28] MEDS: FOLVITE 1 MG PO (08:06)
[2025-02-28 08:08] VITALS: BP 151/94
[2025-02-28 10:26] VITALS: BP 125/73
--- NOTE | 2025-02-28 10:39 | W.PN.HOSP.TC ---
Today's Communication/Plan
-
Discharge planning
Assessment / Plan
Assessment / Plan
Gen-AAOx3, NAD
HEENT-NC, AT, anicteric, clear oral mm
Neck-supple
CV-reg, no M, +S1/S2
Lungs-clear B/L
Abd-soft, NT, ND
Ext-no edema
Musculoskeletal-no cyanosis, clubbing
Skin-warm and dry
Neuro-grossly non-focal
Psych-calm, cooperative
Intentional drug overdose -presentation with unresponsiveness, acute encephalopathy. Presumed suicide attempt. Intubated for airway protection on arrival, patient self extubated.
Hemodynamically stable, oxygenation normal on room air.
Major depression -patient admits to taking a handful of his home medications to sleep for a few days. He states he took 15 tablets of Thorazine, 15 tablets of Lexapro, 8 tablets of clonidine, 8 tablets of Benadryl to help him sleep. He also drank
a whole bottle of whiskey at the time. He denies history of suicidal ideation or attempts. States he has had major depression for most of his life.
Agree with psychiatry regarding 302. Agree with one-to-one sitter. Discussed with patient that he needs acute psychiatric hospitalization. He is not happy with this recommendation.
Alcohol use disorder -tremors improving. Continue alcohol withdrawal protocol. He was a daily drinker up until a week ago when he decided to try to stop. He drank a bottle of whiskey on 02/24 prior to admission.
Marijuana use disorder -smokes marijuana daily.
Full code
Dispo -medically stable for discharge to inpatient psychiatric hospital. Updated case management. Discussed with psychiatry service.
Add bowel regimen.
Anticipated Discharge: Within 24 hours
Subjective/Interval History
-
Date of Service: February 28, 2025
Patient seen and examined, no complaints.
Objective Data
-
Vital Signs:
Vital Signs
Temp Pulse Resp BP Pulse Ox
98.6 F 90 16 125/73 97
02/28/25 10:26 02/28/25 10:26 02/28/25 10:26 02/28/25 10:26 02/28/25 10:26
I&O
02/27/25 02/28/25 03/01/25
06:59 06:59 06:59
Intake Total 420 / 420 960 / 960
Output Total 750 / 750
Balance -330 / -330 960 / 960
Review of Systems
-
History Source: Patient
All other systems: Reviewed and negative
[2025-02-28] MEDS: MIRALAX 17 GRAMS PO (10:52)
--- NOTE | 2025-02-28 10:56 | W.DS.TRANS ---
DC Summary - Coordinator Skill Training Program
-
Discharge Instructions:
Discharge Diagnosis/Procedures Suicide attempt, drug overdose, major depression
Diet Regular
Activity As tolerated
Driving Restrictions As prior to admission
Bathing Restrictions None
Instructions:
Stand-Alone Forms:
Changes to Home Medications: No
Discharge Medications:
DC Medications w/original date entered in [employer]
multivitamin with folic acid 400 mcg tablet (Tab-A-Stanislaw) 1 tab PO DAILY Supplement 09/09/09
folic acid 1 mg tablet 1 mg PO DAILY #0 tabs 02/28/25
polyethylene glycol 3350 17 gram oral powder packet 17 g PO DAILY #0 ea 02/28/25
thiamine mononitrate (vit B1) 100 mg tablet 100 mg PO BID #0 tabs 02/28/25
Home Medication Changes
Pending Results: No
--- NOTE | 2025-02-28 11:19 | CM ---
Addendum entered by Amy Vuong 02/28/25 13:17:
CM spoke with [employer] underwriting account representative, auth approved 02/28-03/04, next review 03/04, auth # [id number]. Call placed to admissions at [facility], auth provided. Call to patients father, updated with facility name and transport.
Original Note:
CM reviewed chart, clinicals faxed to [facility], [facility], [facility], and [facility]. [facility] able to accept patient. spoke with Eliz in admissions ([phone])- updated vitals, clinicals, and 302 faxed to
[facility] (fax: [phone]). Patient scheduled for 3:00 p.m. ambulance transport. Patient updated bedside. CM will continue to follow for all discharge planning needs.
Plan; 302- [facility] accepted, 3:00 p.m. ambulance transport
[facility]
[2025-02-28 11:40] LABS: Triglycerides 112 mg/dl (10-149)
--- NOTE | 2025-02-28 12:16 | W.PN.UPDATE ---
Update Note
Progress Note Update
patient seen chart reviewed. discussed with nursing and with cm. patient scheduled to go to [facility] this afternoon for psych hosp. clarified 302 procedure for him. he is disappointed he cannot go to [facility] but frankly there is not much
difference. we discussed the many issues he hopefully will deal with in ongoing therapy which hopefully will begin at [facility]. meds are not the only aspect of his care. shared w him my observations of his father. father really did seem to care
about him. suggested maybe there is some work he has to do on his part to work on a relationship w dad. acknowledged that i had only seen dad for a moment in time...talked w patient about the reality that a few days in the hospital is not going to
change his life greatly. encouraged him to continue in [facility] at [facility] . i supervise that program and i will try to get him a good psychiatrist to monitor his meds and assist in getting him a therapist as well. belatedly i did get message from the
php at [facility] that his insurance would pay 100 per cent for him in php.
[2025-02-28 15:15] VITALS: BP 151/107
== END 2025-02-28 15:51 | DRG 917 ==
LOC: 4 WEST ACU 10:52
PROVIDERS: ADMITTING PHYSICIAN Hospitalist; CONSULT PHYSICIAN Internal Medicine Critical Care Medicine; EMERGENCY PHYSICIAN Emergency Medicine; OTHER PHYSICIAN Psychiatry & Neurology Psychiatry
PROC: 5A1935Z Respiratory Ventilation, Less than 24 Consecutive Hours (ICD-10-PCS; 2025-02-25)
DX: T43.292A Poisoning by other antidepressants, intentional self-harm, initial encounter (principal); G92.8 Other toxic encephalopathy; J96.92 Respiratory failure, unspecified with hypercapnia; G93.40 Encephalopathy, unspecified; E87.20 Acidosis, unspecified; F32.9 Major depressive disorder, single episode, unspecified; F12.10 Cannabis abuse, uncomplicated; F10.129 Alcohol abuse with intoxication, unspecified; Y90.6 Blood alcohol level of 120-199 mg/100 ml; T14.91XA Suicide attempt, initial encounter; T43.222A Poisoning by selective serotonin reuptake inhibitors, intentional self-harm, initial encounter; T46.5X2A Poisoning by other antihypertensive drugs, intentional self-harm, initial encounter; T45.0X2A Poisoning by antiallergic and antiemetic drugs, intentional self-harm, initial encounter; T51.0X2A Toxic effect of ethanol, intentional self-harm, initial encounter; D72.829 Elevated white blood cell count, unspecified; E78.5 Hyperlipidemia, unspecified; F17.200 Nicotine dependence, unspecified, uncomplicated; F41.9 Anxiety disorder, unspecified; I10 Essential (primary) hypertension; Z86.19 Personal history of other infectious and parasitic diseases
CPT/HCPCS: 31500; 51701; 70450; 71045; 80048; 80053; 80143; 80179; 80306; 81003; 81015; 82077; 82306; 82607; 82746; 82805; 82962; 83735; 84443; 84478; 85025; 85610; 85730; 93005; 94002; 96365; 96367; 96375; 99291